=== PATIENT | male | born 1990 | race Caucasian/White ===

== ENCOUNTER 2019-07-26 20:18 | Emergency (ER) | payer OTHER ==
[~2019-07-26] VITALS: Ht 190.5 cm; Wt 81.8 kg
[2019-07-26] MEDS ORDERED: RISP1 PO (20:33)
[2019-07-26 20:34] VITALS: BP 121/71
== END 2019-07-26 23:47 | disposition home or self-care (01) ==
LOC: EMS 20:20
DX: F20.9 Schizophrenia, unspecified (principal); F31.9 Bipolar disorder, unspecified; Z76.0 Encounter for issue of repeat prescription; Z88.0 Allergy status to penicillin; Z79.899 Other long term (current) drug therapy